=== PATIENT | male | born 1955 | race Caucasian/White ===

== ENCOUNTER 2025-08-31 08:34 | Emergency (ER) | payer BC, SELFPAY ==
[2025-08-31 08:39] VITALS: BP 147/91; PULSE 68; TEMP 36.7; O2SAT 98; BMI 23.7
--- NOTE | 2025-08-31 08:48 | CT_ITS ---
[address] [address] Patient Name: JUNIOR Danny JASON MRN: [id number] date: 1955 Sex: M Assigned Patient Location: ER Current Patient Location: .[facility] Accession/Order Number: [id number] Exam Date: 08/31/2025 08:53 Report Date: 08/31/2025 09:13 At the request of: MANNY ROA MD Procedure: CT abdomen pelvis wo con CT abdomen pelvis wo con 08/31/2025 9:00 AM SIGNS AND SYMPTOMS: right flank pain, r/o stone TECHNIQUE: Multidetector ct axial images of the abdomen and pelvis were obtained without IV contrast. Multiplanar reformats were performed and reviewed to further define anatomy and possible pathology. CT was performed with one or more of the following dose reduction techniques: Automated exposure control, adjustment of the mA and/or kV according to patient size, or use of iterative reconstruction technique. COMPARISON: None. FINDINGS: Lower Chest: There is a hiatal hernia with gastric fundus in the lower mediastinum. Atherosclerotic changes are noted in the coronary arteries and thoracic aorta. ABDOMEN: Liver: Within normal limits. Bile Ducts: Normal caliber. Gallbladder: No calcified gallstones. Normal caliber wall. Pancreas: Within normal limits. Spleen: Within normal limits. Adrenals: Within normal limits. Kidneys: There is a simple cyst in the right renal cortex. There are nonobstructing stones in the right renal collecting system measuring up to 1.8 cm in greatest dimension. There is right-sided hydronephrosis. Pelvis: Reproductive Organs: No pelvic masses. Ureters: There is a 2 cm stone or collection of stones in the distal right ureter and right ureterovesical junction. There is a 3 mm stone in the proximal right ureter. There is hydroureter on the right. Bladder: Within normal limits. Bowel: Normal caliber. Mesenteric Lymph Nodes: Uncomplicated diverticula are noted. Peritoneum: No ascites or free air, no fluid collection. Vessels: Atherosclerotic changes are noted in the abdominal aorta. Retroperitoneum: Within normal limits. Abdominal Wall: Within normal limits. Bones: Degenerative changes are noted in the thoracolumbar spine, hips, and sacroiliac joints. CT/CT abdomen pelvis wo con IMPRESSION: There are nonobstructing stones in the right renal collecting system measuring up to 1.8 cm in greatest dimension. There is right-sided hydronephrosis. There is a 2 cm stone or collection of stones in the distal right ureter and right ureterovesical junction. There is a 3 mm stone in the proximal right ureter. There is hydroureter on the right. Impression dictated by: Lalo Murdock M.D. 08/31/2025 9:13 AM Dictation Location: [place] [address] Electronically authenticated by: [id number] Y Date: 08/31/2025 09:13
--- NOTE | 2025-08-31 08:48 | ED.GENADUL1 ---
HPI HPI - General Adult General Chief complaint: Abdominal Pain Stated complaint: R FLANK PAIN Time Seen by Provider: 08/31/25 08:44 Source: patient Mode of arrival: walk-in History of Present Illness HPI narrative: 70-year-old male presents for right flank pain. It is been intermittent since yesterday morning. He threw up multiple times today. No gross hematuria or injury. His pain has subsided for now, it has been intermittent. No trauma or fever. He has had kidney stones in the past and it feels similar. Related Data Previous Rx's ?Medication ?Instructions ?Recorded cephalexin 500 mg capsule 500 mg PO TID 7 days #21 caps 08/31/25 ondansetron 4 mg disintegrating 4 mg PO Q6H PRN nausea and 08/31/25 tablet vomiting #20 tabs oxycodone-acetaminophen 5 mg-325 1 tab PO Q6H PRN pain #20 tabs 08/31/25 mg tablet (Percocet) tamsulosin 0.4 mg capsule 0.4 mg PO DAILY #7 caps 08/31/25 Allergies Allergy/AdvReac Type Severity Reaction Status Date / Time No Known Drug Allergies Allergy Verified 08/31/25 08:39 Opioid HPI Opioid Management Most Recent Opioid Data: Last Pain Scale 5 Today, 08:56 Review of Systems ROS Narrative A ten point review of systems is negative except as noted above. PFSH PFSH Social History Little interest or pleasure in doing things: not at all Feeling down, depressed, or hopeless: not at all Exam Narrative Exam Narrative: Nurses note and vital signs reviewed General:The patient appears well and in no apparent distress. Patient is resting comfortably on cart. Skin:Warm, dry, no pallor noted.There is no rash noted. Head:Normocephalic, atraumatic Eye: Normal conjunctiva, no drainage Ears, Nose, Mouth, and Throat: oral mucosa is moist. Nares patent. Cardiovascular:Regular Rate and Rhythm Respiratory:Patient is in no distress, no accessory muscle use, lungs are clear to auscultation, no wheezing, rales or rhonchi Back:non-tender, no CVA tenderness bilaterally to percussion. No flank bruising or rash. GI: Soft and nontender Musculoskeletal: The patient has no evidence of calf tenderness, no pitting edema, symmetrical pulses noted bilaterally Neurological:A&O, normal speech Psychiatric:Cooperative Constitutional Vital Signs, click to edit/add: Last Vital Signs Temp 98.1 F 08/31/25 08:39 Pulse 68 08/31/25 08:39 Resp 16 08/31/25 08:39 BP 147/91 H 08/31/25 08:39 Pulse Ox 98 08/31/25 08:39 O2 Del Method Room Air 08/31/25 08:39 Course Vital Signs Vital signs: Vital Signs Temperature 98.1 F 08/31/25 08:39 Pulse Rate 68 08/31/25 08:39 Respiratory Rate 16 08/31/25 08:39 Blood Pressure 147/91 H 08/31/25 08:39 Pulse Oximetry 98 08/31/25 08:39 Oxygen Delivery Method Room Air 08/31/25 08:39 Temperature 98.1 F 08/31/25 08:39 Pulse Rate 68 08/31/25 08:39 Respiratory Rate 16 08/31/25 08:39 Blood Pressure 147/91 H 08/31/25 08:39 Pulse Oximetry 98 08/31/25 08:39 Oxygen Delivery Method Room Air 08/31/25 08:39 Medical Decision Making MDM Narrative Medical decision making narrative: The patient has kidney stones. He has a 3 mm stone in the proximal right ureter and what appears to be a series of stones at the right UV junction. He also has additional stones in the right kidney. At this point he does not need to be admitted to the hospital. He was prescribed Percocet, Flomax, Keflex, and Zofran. He will follow-up with Dr. Grande and will call today for an appointment. He will return to the emergency department if symptoms worsen. Findings are discussed thoroughly with the patient and his . Differential Diagnosis Differential Diagnosis: Kidney stone, UTI, muscle pain Lab Data Lab results reviewed: Yes I reviewed the patient's lab results Labs: Lab Results 08/31/25 08/31/25 Range/Units 08:50 08:52 WBC 17.2 H (4.0-11.0) 10^3/uL RBC 5.46 (4.70-6.10) 10^6/uL Hgb 16.4 (14.0-18.0) g/dL Hct 49.5 (42.0-54.0) % MCV 90.7 (80.0-94.0) fL MCH 30.0 (25.9-34.0) pg MCHC 33.1 (29.9-35.2) g/dL RDW 13.0 (11.0-15.0) % Plt Count 326 (150-450) 10^3/uL MPV 9.6 (9.5-13.5) fL Seg Neuts % (Manual) 86.0 H (43.0-75.0) Lymphocytes % (Manual) 6.0 L (20.5-60.0) % Monocytes % (Manual) 8.0 (1.7-12.0) % Eosinophils % (Manual) 0.0 L (0.9-7.0) % Basophils % (Manual) 0.0 L (0.2-2.0) % Neutrophils # (Manual) 14.79 H (1.4-6.5) 10^3/uL Lymphocytes # (Manual) 1.03 L (1.20-3.80) 10^3/uL Monocytes # (Manual) 1.37 H (0.30-0.80) 10^3/uL Eosinophils # (Manual) 0.00 (0.00-0.70) 10^3/uL Basophils # (Manual) 0.00 (0.00-0.10) 10^3/uL Sodium 138 (136-145) mmol/L Potassium 4.1 (3.5-5.1) mmol/L Chloride 98 (98-107) mmol/L Carbon Dioxide 29.7 (21.0-32.0) mmol/L Anion Gap 14.4 BUN 24.0 H (7.0-18.0) mg/dL Creatinine 1.70 H (0.70-1.30) mg/dL Est GFR ( Amer) 49 L (>=60 mL/min/1.73m^2) Est GFR (Non-Af Amer) 40 L (>=60 mL/min/1.73m^2) BUN/Creatinine Ratio 14.1 Glucose 115 H (74-106) mg/dL Calcium 9.6 (8.5-10.1) mg/dL Urine Color Yellow (YELLOW) Urine Clarity Clear (CLEAR) Urine pH 6.0 (5.0-9.0) Ur Specific Kelly 1.020 (1.005-1.025) Urine Protein Trace (NEG/TRACE) mg/dL Urine Glucose (UA) Negative (NEGATIVE) mg/dL Urine Ketones 15 A (NEGATIVE) mg/dL Urine Occult Blood Large A (NEGATIVE) Urine Nitrite Negative (NEGATIVE) Urine Bilirubin Negative (NEGATIVE) Urine Urobilinogen 1.0 (0.2-1.0) EU/dL Ur Leukocyte Esterase Negative (NEGATIVE) Urine RBC 20-50 A (0-2) #/HPF Urine WBC 0-2 A (NONE SEEN) #/HPF Ur Squamous Epith Cells Rare (NONE/RARE) #/LPF Urine Crystals None seen (None Seen) #/HPF Urine Bacteria Small A (NONE SEEN) #/HPF Urine Casts None seen (NONE SEEN) #/LPF Urine Mucus Small A (NONE SEEN) Ur Culture Indicated[place] [place] scan - abdomen: Radiologist's impression: ITS Impressions Abdomen/Pelvis CT 08/31/25 08:48 IMPRESSION: There are nonobstructing stones in the right renal collecting system measuring up to 1.8 cm in greatest dimension. There is right-sided hydronephrosis. There is a 2 cm stone or collection of stones in the distal right ureter and right ureterovesical junction. There is a 3 mm stone in the proximal right ureter. There is hydroureter on the right. Impression dictated by: Lalo Murdock M.D. 08/31/2025 9:13 AM Dictation Location: [place] [address] Electronically authenticated by: [id number] Y Date: 08/31/2025 09:13 Discharge Plan Discharge Chief Complaint: Abdominal Pain Clinical Impression: Kidney stone Patient Disposition: Home, Self-Care Time of Disposition Decision: 09:29 Condition: Good Mode of Transportation: Private Vehicle Prescriptions / Home Meds: New oxycodone-acetaminophen [Percocet] 5-325 mg tablet 1 tab PO Q6H PRN (Reason: pain) Qty: 20 0RF cephalexin 500 mg capsule 500 mg PO TID 7 Days Qty: 21 0RF ondansetron 4 mg tablet,disintegrating 4 mg PO Q6H PRN (Reason: nausea and vomiting) Qty: 20 0RF tamsulosin 0.4 mg capsule 0.4 mg PO DAILY Qty: 7 0RF Print Language: Serbian Instructions: Kidney Stones (ED), How to Strain Your Urine (ED) Additional Instructions: Call today for follow-up appointment with Dr. Grande. Return to the emergency department if symptoms worsen. Referrals: Physician,Non-Staff, MD [Primary Care Provider] - 1 week Arnold Grande MD [Physician, Urology] - As soon as possible
[2025-08-31 09:02] LABS: Hematocrit 49.5 % (42.0-54.0); Hemoglobin 16.4 g/dL (14.0-18.0); Mean Corpuscular HGB Conc 33.1 g/dL (29.9-35.2); Mean Corpuscular Hemoglobin 30.0 pg (25.9-34.0); Mean Corpuscular Volume 90.7 fL (80.0-94.0); Platelet Count 326 10^3/uL (150-450); Red Blood Count 5.46 10^6/uL (4.70-6.10); White Blood Count 17.2 10^3/uL (4.0-11.0)
[2025-08-31 09:04] LABS: Glucose Urine UA NEGATIVE (NEGATIVE)
[2025-08-31 09:13] LABS: Anion Gap 14.4; Blood Urea Nitrogen 24.0 mg/dL (7.0-18.0); Calcium 9.6 mg/dL (8.5-10.1); Carbon Dioxide 29.7 mmol/L (21.0-32.0); Chloride 98 mmol/L (98-107); Estimated GFR (African America 49 (>=60 mL/min/1.73m^2); Estimated GFR (Non-African Ame 40 (>=60 mL/min/1.73m^2); Glucose 115 mg/dL (74-106); Potassium 4.1 mmol/L (3.5-5.1); Sodium 138 mmol/L (136-145)
[2025-08-31 09:15] LABS: Cast Seen? NONE SEEN #/LPF (NONE SEEN); Crystals Seen? None Seen #/HPF (None Seen); Urine Culture Indicated YES-FRMC
[2025-08-31 09:19] LABS: Basophils Abs Manual 0.00 10^3/uL (0.00-0.10); Basophils Percent Manual 0.0 % (0.2-2.0); Eosinophils Absolute Manual 0.00 10^3/uL (0.00-0.70); Eosinophils Percent Manual 0.0 % (0.9-7.0); Lymphocytes Absolute Manual 1.03 10^3/uL (1.20-3.80); Lymphocytes Percent Manual 6.0 % (20.5-60.0); Monocytes Absolute Manual 1.37 10^3/uL (0.30-0.80); Monocytes Percent Manual 8.0 % (1.7-12.0); Segmented Neut Absolute Manual 14.79 10^3/uL (1.4-6.5); Segmented Neutrophils % Manual 86.0 (43.0-75.0)
[2025-08-31] MEDS: MORPHINE SULFATE 4 MG/ML VIAL IV (09:45)
== END 2025-08-31 10:11 | disposition home or self-care (01) ==
PROVIDERS: Emergency Provider Emergency Medicine
DX: N20.0 Calculus of kidney (principal); Z87.442 Personal history of urinary calculi
CPT/HCPCS: 36415; 74176; 80048; 81001; 85007; 85027; 87086; 96374; 96375; 99284; J2270; J2405